=== PATIENT | male | born 1980 | race African-American/Black ===

== ENCOUNTER 2020-11-22 12:15 | Emergency (ER) | payer OTHER ==
[~2020-11-22] VITALS: Ht 188 cm; Wt 145.2 kg
[2020-11-22 12:20] VITALS: TEMP 98.4
[2020-11-22 12:56] LABS: PLATELET COUNT 198 K/uL (142-355)
[2020-11-22 13:10] LABS: POTASSIUM 3.7 mmol/L (3.6-5.2)
[2020-11-22 14:27] VITALS: BP 169/95
== END 2020-11-22 14:30 | disposition home or self-care (01) ==
LOC: ED 12:15
PROVIDERS: Emergency Medicine Emergency Medical Services
DX: J20.9 Acute bronchitis, unspecified (principal); L72.8 Other follicular cysts of the skin and subcutaneous tissue; Z98.890 Other specified postprocedural states; Z72.0 Tobacco use; Z20.822 Contact with and (suspected) exposure to COVID-19
CPT/HCPCS: 80053; 83880; 85027; 87502; 87635; 93005; 94664; 99283; U0003

== ENCOUNTER 2021-06-14 05:18 | Emergency (ER) | payer OTHER ==
[~2021-06-14] VITALS: Ht 188 cm; Wt 145.2 kg
[2021-06-14 06:25] VITALS: BP 163/99; TEMP 98.5
== END 2021-06-14 06:30 | disposition home or self-care (01) ==
LOC: ED 05:18
DX: M54.42 Lumbago with sciatica, left side (principal); M62.830 Muscle spasm of back
CPT/HCPCS: 96372; 99283; J1100; J1885

== ENCOUNTER 2021-07-31 02:38 | Emergency (ER) | payer OTHER ==
[~2021-07-31] VITALS: Ht 188 cm; Wt 147.0 kg
[2021-07-31 03:18] LABS: PLATELET COUNT 218 K/uL (142-355)
[2021-07-31 03:26] LABS: POTASSIUM 3.5 mmol/L (3.6-5.2)
[2021-07-31 04:45] VITALS: BP 164/96; TEMP 98.1
== END 2021-07-31 04:50 | disposition home or self-care (01) ==
LOC: ED 02:38
PROVIDERS: Hospitalist
DX: I10 Essential (primary) hypertension (principal); I51.9 Heart disease, unspecified; J11.1 Influenza due to unidentified influenza virus with other respiratory manifestations; J06.9 Acute upper respiratory infection, unspecified; F17.290 Nicotine dependence, other tobacco product, uncomplicated; Z20.822 Contact with and (suspected) exposure to COVID-19
CPT/HCPCS: 36415; 80053; 82550; 83880; 84484; 85027; 85610; 85730; 87502; 87635; 87651; 93005; 99283; U0003

== ENCOUNTER 2022-01-06 17:36 | Emergency (ER) | payer OTHER ==
[~2022-01-06] VITALS: Ht 188 cm; Wt 145.2 kg
[2022-01-06 17:42] VITALS: BP 157/93; TEMP 97.3
== END 2022-01-06 19:30 | disposition home or self-care (01) ==
LOC: ED 17:36
PROC: 0HCDXZZ Extirpation of Matter from Right Lower Arm Skin, External Approach (ICD-10-PCS; principal; 2022-01-06)
PROC: 0HQDXZZ Repair Right Lower Arm Skin, External Approach (ICD-10-PCS; 2022-01-06)
DX: S61.541A Puncture wound with foreign body of right wrist, initial encounter (principal); W45.8XXA Other foreign body or object entering through skin, initial encounter; Y92.89 Other specified places as the place of occurrence of the external cause
CPT/HCPCS: 99283; J2001

== ENCOUNTER 2022-09-26 17:20 | Emergency (ER) | payer OTHER ==
[~2022-09-26] VITALS: Ht 185.4 cm; Wt 145.2 kg
[2022-09-26 17:23] VITALS: BP 104/64; TEMP 98.2
== END 2022-09-26 20:00 | disposition home or self-care (01) ==
LOC: ED 17:20
PROC: 0HQLXZZ Repair Left Lower Leg Skin, External Approach (ICD-10-PCS; principal; 2022-09-26)
DX: S86.822A Laceration of other muscle(s) and tendon(s) at lower leg level, left leg, initial encounter (principal); W26.0XXA Contact with knife, initial encounter; Y92.89 Other specified places as the place of occurrence of the external cause
CPT/HCPCS: 99283; J7040